=== PATIENT | female | born 1960 ===

== ENCOUNTER 2025-06-15 06:29 | Day surgery (SDC) | payer MEDICARE, OTHER, SELFPAY | END 2025-06-15 10:00 | disposition home or self-care (01) | LOC: GI 06:29 | PROVIDERS: ATTENDING PHYSICIAN Internal Medicine Gastroenterology | DX: Z12.11 Encounter for screening for malignant neoplasm of colon (principal); K57.30 Diverticulosis of large intestine without perforation or abscess without bleeding; K64.8 Other hemorrhoids; Z80.0 Family history of malignant neoplasm of digestive organs | CPT/HCPCS: G0105 ==